=== PATIENT | male | born 1960 | race Caucasian/White ===

== ENCOUNTER 2024-01-23 19:07 | Emergency (ER) | payer MEDICAID ==
[~2024-01-23] VITALS: Ht 162.6 cm; Wt 61.2 kg
[2024-01-23 19:15] VITALS: BP 124/82; PULSE 80; RESP 18; TEMP 98.4; O2SAT 99
[2024-01-23 21:05] LABS: BASOPHILS % (AUTO) 0.6 % (0.0-2.0); EOSINOPHILS # (AUTO) 0.1 K/uL (0-0.4); EOSINOPHILS % (AUTO) 1.6 % (0.0-4.0); HEMATOCRIT 46.2 % (36-52); HEMOGLOBIN 15.7 g/dL (12.0-18.0); LYMPHOCYTES # (AUTO) 2.6 K/uL (2.0-11.5); LYMPHOCYTES % (AUTO) 33.2 % (20.5-51.1); MEAN CORPUSCULAR HEMOGLOBIN 28 pg (27-31); MEAN CORPUSCULAR HGB CONC 34 g/dL (33-37); MEAN CORPUSCULAR VOLUME 83.4 fL (80-94); MONOCYTES # (AUTO) 0.8 K/uL (0.8-1.0); MONOCYTES % (AUTO) 9.7 % (1.7-9.3); NEUTROPHILS # (AUTO) 4.2 K/uL (1.8-7.7); NEUTROPHILS % (AUTO) 54.9 % (42.2-75.2); PLATELET COUNT (AUTO) 227 K/uL (140-450); RED BLOOD CELL COUNT(AUTO) 5.54 MIL/uL (4.20-6.10); RED CELL DISTRIBUTION WIDTH 13.5 % (11.6-13.7); WHITE BLOOD COUNT (AUTO) 7.7 K/uL (4.8-10.8)
[2024-01-23 21:25] LABS: ALANINE AMINOTRANSFERASE 41 U/L (12-78); ALBUMIN 3.6 g/dL (3.4-5.0); ALKALINE PHOSPHATASE 126 U/L (50-136); ASPARTATE AMINOTRANSFERASE 29 U/L (15-37); BILIRUBIN,DIRECT 0.1 mg/dL (0.0-0.3); LIPASE 37 U/L (16-77); TOTAL BILIRUBIN 0.6 mg/dL (0.0-1.0); TOTAL PROTEIN, SERUM 8.2 g/dL (6.4-8.2)
[2024-01-23 21:36] LABS: ANION GAP 13.8 (8-16); CALCIUM 9.1 mg/dL (8.5-10.1); CARBON DIOXIDE 28.6 mmol/L (21-32); CREATININE 0.8 mg/dL (0.6-1.3); POTASSIUM 4.4 mmol/L (3.5-5.1)
[2024-01-23] MEDS ORDERED: ONDA-188 PO (23:04)
[2024-01-23] MEDS ORDERED: LOPE1TAB14 PO (23:04)
[2024-01-23] MEDS ORDERED: IBUP-2213 PO (23:05)
[2024-01-23] MEDS ORDERED: ACET-2619 PO (23:05)
[2024-01-23] MEDS ORDERED: LID5T TP (23:05)
[2024-01-23] MEDS ORDERED: ACET-9496 PO (23:08)
[2024-01-23] MEDS ORDERED: CYCL-711 PO (23:08)
[2024-01-23] MEDS: KETOROLAC 30 MG/ML VIAL IM ONE (23:23)
[2024-01-23] MEDS: ACETAMINOPHEN EXTRA STRENGTH 500 MG TAB PO ONE (23:26)
[2024-01-23 23:53] VITALS: BP 124/82; PULSE 80; RESP 18; TEMP 98.4; O2SAT 99
== END 2024-01-23 23:56 | disposition home or self-care (01) ==
LOC: MED 19:07
DX: M54.81 Occipital neuralgia (principal); Z79.899 Other long term (current) drug therapy
CPT/HCPCS: 36415; 80048; 80076; 83690; 84484; 85025; 93005; 96372; 99284; J1885